=== PATIENT | female | born 1990 ===

== ENCOUNTER 2023-12-07 17:51 | Emergency (ER) | payer MEDICAID ==
[~2023-12-07] VITALS: Ht 160 cm; Wt 68.0 kg
[2023-12-07 17:55] VITALS: BP 143/109
== END 2023-12-07 19:55 | disposition home or self-care (01) ==
LOC: ER 17:51
DX: S20.211A Contusion of right front wall of thorax, initial encounter (principal); W18.39XA Other fall on same level, initial encounter; Y93.K1 Activity, walking an animal
CPT/HCPCS: 71101; 96372; 99283-25; A9270; J1885